=== PATIENT | female | born 1965 | race American Indian/Alaskan Native ===

== ENCOUNTER 2018-01-29 12:29 | Emergency (ER) | payer SELFPAY ==
[2018-01-29 12:40] VITALS: BP 122/87
[2018-01-29] MEDS ORDERED: TYLENOL PO ONE (14:59)
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
== END 2018-01-29 15:35 | disposition left against medical advice (07) ==
LOC: ED 12:29
DX: M54.2 Cervicalgia (principal); M54.5 Low back pain; I10 Essential (primary) hypertension; Z88.1 Allergy status to other antibiotic agents; Z88.2 Allergy status to sulfonamides; V89.2XXA Person injured in unspecified motor-vehicle accident, traffic, initial encounter; Y93.89 Activity, other specified; Y99.8 Other external cause status; Y92.410 Unspecified street and highway as the place of occurrence of the external cause
CPT/HCPCS: 72040; 72100; 99283